=== PATIENT | female | born 1980 | race Caucasian/White ===

== ENCOUNTER → 2016-06-15 | Outpatient (CLI) | payer BC ==
[~2016-06-15] MED LIST: ALBU8.5H5 IH; ESCI20TA PO; HYDR-4246 PO; MAGN400C PO; POLY17PO6 PO; VERA240C2 PO
[2016-06-15 08:47] LABS: HEMOGLOBIN A1C 5.5 % (6.1-7.9)
[2016-06-15 08:50] LABS: ANION GAP 11 MEQ/L (5-15); BUN/CREATININE RATIO 21 RATIO (6-26); CALCIUM 9.2 MG/DL (8.4-10.2); CHLORIDE 105 MEQ/L (98-107); CO2 - CARBON DIOXIDE 27 MEQ/L (22-30); CREATININE 0.7 MG/DL (0.7-1.2); GLOMERULAR FILTRATION RATE 94; GLUCOSE 107 MG/DL (65-110); POTASSIUM 4.2 MEQ/L (3.6-5); SODIUM 143 MEQ/L (134-144)
== END ==
LOC: LAB 08:20
PROVIDERS: ATTEND Family Medicine
DX: R73.9 Hyperglycemia, unspecified (principal)
CPT/HCPCS: 36415; 80048; 83036

== ENCOUNTER → 2016-08-08 | Outpatient (CLI) | payer BC ==
[~2016-08-08] MED LIST changes: +IOHEXOL 180 MG/ML 20ml INJECTION ONE; +LIDOCAINE 1% (10mg/ml) 5ml VIAL ONE; +MethylPREDNISolone ACETATE 40mg/1ml ONE
--- NOTE | 2016-08-08 14:47 | DI ---
Indication: ITS.REASON: M43.06 SPONDYLOLISTHESIS; M43.16; M54.16 RADICULOPATHY PROCEDURE: EPIDURAL INJ.SPINE W FLUO CATH: Encounter: Initial Comparison: None Procedure: The risks, benefits, options and nature of the procedure were discussed with the patient who agreed to undergo the procedure. Informed consent was obtained. A "timeout procedure" was performed prior to initiating the procedure. Following sterile prep and drape, using maximal sterile barrier technique, an L5-S1 left parasagittal approach was made with a 22-gauge spinal needle targeting the left L5-S1 neural foramen. The perineural space was distended with nonionic contrast demonstrating good perineural but little epidural spill. Depo-Medrol, 120 mg, with 1 cc of 1% Xylocaine was slowly infused into the epidural space under fluoroscopic guidance. The needle was then removed. Following the procedure, there were no immediate complications. IMPRESSION: Successful left L5-S1 epidural steroid injection. TOTAL FLUOROSCOPIC TIME: 1.2 minutes .
== END ==
LOC: IMA 10:42
PROVIDERS: ATTEND Orthopaedic Surgery Orthopaedic Surgery of the Spine
DX: M43.06 Spondylolysis, lumbar region (principal); M54.16 Radiculopathy, lumbar region
CPT/HCPCS: 62323